=== PATIENT | female | born 1990 | race Caucasian/White ===

== ENCOUNTER → 2025-02-09 14:35 | Outpatient (REF) | payer BC, SELFPAY | LOC: HWRAD 14:35 | PROVIDERS: ATTENDING PHYSICIAN Physician Assistant Medical | DX: R19.01 Right upper quadrant abdominal swelling, mass and lump (principal) | CPT/HCPCS: 76705 ==

== ENCOUNTER 2025-04-07 06:22 | Day surgery (SDC) | payer BC, SELFPAY ==
[2025-04-07 06:53] VITALS: BP 115/78
--- NOTE | 2025-04-07 06:59 | W.SUR.PREOP ---
Pre-Operative Surgical Note
-
I have examined this patient prior to the performance of the scheduled procedure.
The patient's condition is unchanged from the time of the current History and
Physical and the patient is able to undergo the scheduled procedure.
[2025-04-07] MEDS: TYLENOL 1000 MG PO (07:00)
[2025-04-07] MEDS: NORMOSOL-R/PLASMALYTE-A 1000 IV (07:00)
[2025-04-07 07:06] VITALS: BMI 24.6
[2025-04-07 07:07] VITALS: BMI 24.6
--- NOTE | 2025-04-07 08:09 | W.IMMPOSTOP ---
Addendum entered and electronically signed by Ghulam Laird MD 04/07/25 08:18:
#[id number]
correction: 0.5cm ventral hernia defect, reducible
Original Note:
Surgical Immed Post Op Note
-
Primary Surgeon: Ghulam Laird MD
Assisting Surgeon: Jamar Senior
Pre-op Diagnosis: Ventral Hernia, reducible
Post-op Diagnosis: VH, reducible
Procedure Performed: Open primary VH repair; 0.5mm
Anesthesia Type: MAC + 0.25% Marcaine with epi
Specimen / Cultures: none
Estimated Blood Loss: 2mL
Complications: none immediate
Operative Findings: preperitoneal fat containing ventral hernia. fascial defect 0.5mm. no additional hernias noted in the immediate vicinity. primary repair with 0 PDS stitch x 2.
[2025-04-07 08:10] VITALS: BP 114/71
[2025-04-07 08:15] VITALS: BP 108/71
[2025-04-07 08:30] VITALS: BP 107/79
[2025-04-07 08:45] VITALS: BP 104/71
== END 2025-04-07 08:56 | disposition home or self-care (01) ==
LOC: SDS 06:22
PROVIDERS: ATTENDING PHYSICIAN Surgery
DX: K43.9 Ventral hernia without obstruction or gangrene (principal)
CPT/HCPCS: 49591